=== PATIENT | male | born 1975 | race American Indian/Alaskan Native ===

== ENCOUNTER 2021-07-09 23:08 | Emergency (ER) | payer BC ==
[2021-07-09 23:36] VITALS: BP 142/77
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
== END 2021-07-10 01:20 | disposition home or self-care (01) ==
LOC: ED 23:08
DX: L02.411 Cutaneous abscess of right axilla (principal); Z20.2 Contact with and (suspected) exposure to infections with a predominantly sexual mode of transmission
CPT/HCPCS: 99281

== ENCOUNTER 2021-09-11 00:17 | Emergency (ER) | payer BC ==
[2021-09-11 00:21] VITALS: BP 126/68
[2021-09-11] MEDS ORDERED: PENICILLIN G BENZATHINE 1.2 MILLION UNIT/2 ML INJ IM ONE (06:17)
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
== END 2021-09-11 06:59 | disposition home or self-care (01) ==
LOC: ED 00:17
DX: B37.42 Candidal balanitis (principal); Z20.2 Contact with and (suspected) exposure to infections with a predominantly sexual mode of transmission
CPT/HCPCS: 96372; 99282; J0561; 90471